=== PATIENT | male | born 1945 | race Caucasian/White ===

== ENCOUNTER 2018-12-01 17:25 | Observation (INO) | payer MEDICARE, OTHER ==
[2018-12-01] MEDS ORDERED: ALBUTEROL SULFATE/IPRATROPIUM 3 ML NEBU IH ONE (17:41)
[2018-12-01] MEDS ORDERED: METHYLPREDNISOLONE SOD SUCC/PF 125 MG/2 ML VIAL IV ONE (17:41)
[2018-12-01 17:53] LABS: Hematocrit 46.9 % (42.0-52.0); Hemoglobin 15.4 gm/dL (13.5-18.0); Mean Cell Volume 93.8 fl (78-100); Mean Corpuscular Hemoglobin 30.8 pg (27-31); Mean Corpuscular Hgb Conc 32.8 g/dl (32-36); Neutrophil # 7.1 K/mm3 (1.3-6.0); Neutrophil % 80.8 % (42-75.0); Platelet Count 305 K/mm3 (150-450); Red Cell Distribution Width 11.8 % (11.5-14.0); White Blood Count 8.8 K/mm3 (4.0-10.5)
[2018-12-01 18:05] LABS: Albumin * 3.6 gm/dl (3.4-5.0); Anion Gap 10.8 mmol/L (6.8-13.8); BUN/Creatinine Ratio 18.8 (9.0-21.6); Bilirubin, Total 0.5 mg/dL (0.0-1.1); Ca. Corrected For Albumin 10.3 mg/dL (8.4-10.2); Calcium * 10.3 mg/dL (7.9-10.9); Potassium 4.8 mmol/L (3.4-4.6); Total Protein 8.2 gm/dL (6.2-8.2)
--- NOTE | 2018-12-01 18:48 | ERNOTE ---
Dyspnea - Date Date of Service: 12/01/18 - General Presenting Symptoms: shortness of breath, difficulty of breathing, wheezing Time Seen by Provider: 12/01/18 17:37 Source: patient, family Exam Limitations: no limitations - Immun/Allergies/Home Medications Immunizations: IMMUNIZATION HX Immunizations Up to Date Yes History of Influenza Vaccine Yes Hx Pneumococcal Vaccination Yes Allergies/Adverse Reactions: Allergies morphine Adverse Reaction (Intermediate, Verified 12/01/18 17:34) bad headache Iodinated Contrast- Oral and IV Dye Adverse Reaction (Verified 12/01/18 17:34) rash Home Medications: HOME MEDICATIONS Naproxen Sodium [Aleve] 220 mg PO BID PRN 05/19/15 [Last Taken Unknown] acetaminophen 325 mg capsule 325 mg PO Q4H PRN 11/11/18 [Last Taken Unknown] albuterol sulfate HFA 90 mcg/actuation aerosol inhaler 2 puff IH Q6H PRN 11/11/18 [Last Taken Unknown] budesonide-formoterol HFA 80 mcg-4.5 mcg/actuation aerosol inhaler 2 puff IH BID 11/11/18 [Last Taken Unknown] losartan 100 mg tablet 50 mg PO DAILY tab 11/11/18 [Last Taken Unknown] buspirone 5 mg tablet 5 mg PO BID tab 11/20/18 [Last Taken Unknown] tramadol 50 mg tablet 50 mg PO Q6H PRN #30 tab 11/20/18 [Last Taken Unknown] - History of Present Illness Narrative: patient with known hx of end stage copd present with increased sob over last several days, is on oxygen continuously Severity: moderate Treatment 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: 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 Initiating event: Reports: upper resp illness Frequency of episodes: Reports: frequent episodes Modifying Factors - (Improves): Reports: nothing Modifying Factors (Worsens): Reports: activity Associated Symptoms-Dyspnea: Reports: wheezing Review of Systems - Review of Systems Constitutional: Present: See HPI, weakness, fatigue, malaise EYE: Present: no symptoms reported ENT: Present: no symptoms reported Respiratory: Present: See HPI, shortness of breath, cough, wheezing Cardiology: Present: no symptoms reported Gastrointestinal/Abdominal: Present: no symptoms reported Genitourinary: Present: no symptoms reported Musculoskeletal: Present: no symptoms reported Skin: Present: no symptoms reported Neurological: Present: no symptoms reported Endocrine: Present: no symptoms reported Hematologic/Lymphatic: Present: no symptoms reported Psych: Present: no symptoms reported Medical History (Last Reviewed 12/01/18 @ 17:35 by Hoda Aden RN) BPH (benign prostatic hyperplasia) Onset Date: Unknown COPD (chronic obstructive pulmonary disease) Onset Date: Unknown Carotid stenosis Onset Date: Unknown H/O gastroesophageal reflux (GERD) Onset Date: Unknown HTN (hypertension) Onset Date: Unknown Hyperlipidemia Onset Date: Unknown Past heart attack Onset Date: Unknown Surgical History: Surgical History (Last Reviewed 12/01/18 @ 17:35 by Hoda Aden RN) H/O flexible sigmoidoscopy Onset Date: Unknown Done at the [facility]- refuses colonoscopy History of cystoscopy Onset Date: Unknown History of esophagogastroduodenoscopy (EGD) Onset Date: ~2005 done at the [facility]-polyps urethroplasty Onset Date: Unknown Family History: Family History (Last Reviewed 12/01/18 @ 17:35 by Hoda Aden RN) Mother Cancer Dementia Myocardial infarction Father , age 52-CVA No problems noted. Brother No problems noted. Social History: Preferred Language Kyrgyz Smoking Status Former smoker Abuse History No History of abuse Psych History Hx of Anxiety Alcohol Use none Drug Use none (Last Updated 11/20/18 @ 15:33 by Ana Cristina Raman MD) No Social History Section defined Physical Exam - Physical Exam General Appearance: Present: moderate distress, anxious Head Exam: Present: normal inspection, no evidence of injury Eye Exam: Normal inspection: bilateral, PERRL: bilateral, EOMI: bilateral Ears, Nose, Throat: Present: normal ENT inspection, normal pharynx Neck: Present: normal inspection, nontender Respiratory: Present: respiratory distress, accessory muscle use, decreased breath sounds, expiration (prolonged), wheezing Cardiovascular/Chest: Present: regular rate, rhythm, no murmur, normal peripheral pulses Gastrointestinal/Abdominal: Present: normal bowel sounds, nontender, nondistended, soft, no organomegaly Back Exam: Present: normal inspection, normal range of motion, no CVA tenderness, no vertebral tenderness Extremity Exam: Present: normal inspection, non-tender Neurological Exam: Present: alert, oriented, normal mood/affect, no motor/sensory deficits Skin Exam: Present: normal color, warm/dry Lymphatic Exam: Present: no adenopathy Progress - Date and Time Seen: Date and Time: 12/01/18 19:13 patient unchanged, case discussed with dr szymanski to admmit to observation - Results and Orders Patient's Lab Results:: I have reviewed the patient's lab results. - Vital Signs Patient's Vital Signs:: I have reviewed the patient's vital signs. Vital Signs: Vital Signs 12/01/18 17:31 12/01/18 17:35 12/01/18 18:06 Temperature 36.6 C Pulse Rate 93 96 80 Respiratory Rate 18 22 H Blood Pressure 203/110 H O2 Sat by Pulse Oximetry 94 97 12/01/18 18:16 12/01/18 18:33 Temperature Pulse Rate 92 92 Respiratory Rate 20 20 Blood Pressure 177/106 H O2 Sat by Pulse Oximetry 92 L - EKG EKG: NSR - X-Ray X-Ray #1 X-Ray: chest Interpretation: Interp. by me - copd - Progress/Reassessment Chief Complaint: Dyspnea Progress:: Unchanged - Transfer of Care Expected Disposition: Admit Plan - Plan Plan: to admit to observation Departure Clinical Impression: COPD (chronic obstructive pulmonary disease) - Departure Disposition: Still a patient Condition: Poor Referrals: Ana Cristina Raman MD [Primary Care Provider] -
[2018-12-01] MEDS: METHYLPREDNISOLONE SOD SUCC/PF 40 MG/ML VIAL IV SCH (22:21)
[2018-12-01] MEDS: ACETAMINOPHEN 325 MG TABLET PO PRN (23:33)
[2018-12-02] MEDS: METHYLPREDNISOLONE SOD SUCC/PF 40 MG/ML VIAL IV SCH ×4 (02:32→19:07)
[2018-12-02] MEDS ORDERED: ACETAMINOPHEN 325 MG TABLET PO PRN (07:52)
--- NOTE | 2018-12-02 07:54 | HP ---
Chief Complaint - Chief Complaint Date of Service: 12/02/18 Time of Service: 07:30 Chief Complaint: Shortness of breath History of Present Illness: Josh is a 73 yo male with COPD and chronic respiratory failure using oxygen at 1.5lpm at times after activity. He reports to me that he does not use oxygen continuous, only after being active and getting short of breath. He reports over the last week having progressive shortness of breath and anxiety. He reports his wiener-basset dog gives him the most stress relief. He has not been getting out to [place] or [employer] in the past like he has due to the stress. He denies fever or increased sputum production. In the ER he was found to be 84% on room air and required 2lpm of continuous oxygen to keep his sats >90%. Medical History (Last Reviewed 12/01/18 @ 22:54 by Jw Almaguer RN) COPD (chronic obstructive pulmonary disease) Onset Date: Unknown BPH (benign prostatic hyperplasia) Onset Date: Unknown Carotid stenosis Onset Date: Unknown H/O gastroesophageal reflux (GERD) Onset Date: Unknown HTN (hypertension) Onset Date: Unknown Hyperlipidemia Onset Date: Unknown Past heart attack Onset Date: Unknown Surgical History: Surgical History (Last Reviewed 12/01/18 @ 22:54 by Jw Almaguer RN) H/O flexible sigmoidoscopy Onset Date: Unknown Done at the OR- refuses colonoscopy History of cystoscopy Onset Date: Unknown History of esophagogastroduodenoscopy (EGD) Onset Date: ~2005 done at the OR-polyps urethroplasty Onset Date: Unknown Family History: Family History (Last Reviewed 12/01/18 @ 22:54 by Jw Almaguer RN) Mother Cancer Dementia Myocardial infarction Father , age 52-CVA No problems noted. Brother No problems noted. Social History: Patient Lives/Resources Home Utilized Occupation [employer] Preferred Language Bhutanese Do you have any congregation or Yes: [employer] cultural preference? Smoking Status Former smoker Have you smoked in the past 12 No months Do you dip or chew tobacco No Abuse History No History of abuse Psych History Hx of Anxiety Alcohol Use none Drug Use none (Last Updated 11/20/18 @ 15:33 by Ana Cristina Raman MD) No Social History Section defined Review Of Systems (GEN) - Review of Systems Generalized/Overall Review: Present: Weakness. Absent: Chills, Fever EENTM: Present: No Symptoms Reported Respiratory: Present: Cough, Shortness of Breath Cardiac: Present: Palpitations. Absent: Chest Pain, Edema Abdominal: Present: No Symptoms Reported Genitourinary: Present: No Symptoms Reported Musculoskeletal: Present: No Symptoms Reported Neurological: Present: Anxiety Skin: Present: No Symptoms Reported Endocrine: Present: No Symptoms Reported Immunizations: IMMUNIZATION HX Immunizations Up to Date Yes History of Influenza Vaccine Yes Hx Pneumococcal Vaccination Yes Allergies/Adverse Reactions: Allergies Allergy/AdvReac Type Severity Reaction Status Date / Time morphine AdvReac Intermediate bad Verified 12/01/18 17:34 headache Iodinated Contrast- Oral and AdvReac rash Verified 12/01/18 17:34 IV Dye Home Medications: HOME MEDICATIONS Naproxen Sodium [Aleve] 220 mg PO BID PRN 05/19/15 [Last Taken Unknown] acetaminophen 325 mg capsule 325 mg PO Q4H PRN 11/11/18 [Last Taken Unknown] albuterol sulfate HFA 90 mcg/actuation aerosol inhaler 2 puff IH Q6H PRN 11/11/18 [Last Taken Unknown] budesonide-formoterol HFA 80 mcg-4.5 mcg/actuation aerosol inhaler 2 puff IH BID 11/11/18 [Last Taken Unknown] losartan 100 mg tablet 50 mg PO DAILY tab 11/11/18 [Last Taken Unknown] buspirone 5 mg tablet 5 mg PO BID tab 11/20/18 [Last Taken Unknown] Exam - Exam Vital Signs: Vital Signs - Last Taken Temp 36.5 C 12/02/18 06:24 Pulse 86 12/02/18 06:24 Resp 20 12/02/18 06:24 BP 157/93 H 12/02/18 06:24 Pulse Ox 98 12/02/18 06:24 Constitutional: Present: Alert, Oriented x3, Cooperative, Mild distress - Tachypnea Eye Exam: bilateral eye: normal inspection Respiratory: Present: wheezing, expiration (prolonged), other - barrel chested Cardiovascular/Chest: Present: regular rate, rhythm, no murmur Peripheral Pulses: radial (R): 2+, radial (L): 2+ Abdomen: Present: Normal bowel sounds, soft, nontender, nondistended, no hepatospenomegaly Extremity: Present: normal inspection Skin Exam: Present: normal color, warm/dry, no cyanosis Lymphatic: Present: no adenopathy Neurologic: Present: no motor/sensory deficits, alert, other - anxious Diagnostic Studies: Abnormal Lab Results 12/01/18 12/01/18 12/01/18 Range/Units 17:42 17:45 17:45 Neutrophils % 80.8 H (42-75.0) % Lymphocytes % 9.4 L (20-51) % Neutrophils # 7.1 H (1.3-6.0) K/mm3 Lymphocytes # 0.82 L (1.5-3.5) k/mm3 pO2 58.3 L (83.0-108.0) mmHg HCO3 30.2 H (21.0-28.0) mmol/L Total CO2 31.6 H (19.0-24.0) mmol/L Base Excess 5.8 H (-2.0-3.0) mmol/L ABG pH 7.47 H (7.35-7.45) ABG O2 Sat (Measured) 91.7 L (94.0-98.0) % Potassium 4.8 H D (3.4-4.6) mmol/L Calcium Adj for Albumin 10.3 H (8.4-10.2) mg/dL Alkaline Phosphatase 187 H (50-170) U/L Laboratory Results WBC 8.8 K/mm3 (4.0-10.5) 12/01/18 17:45 RBC 5.00 M/mm3 (4.7-6.0) 12/01/18 17:45 Hgb 15.4 gm/dL (13.5-18.0) 12/01/18 17:45 Hct 46.9 % (42.0-52.0) 12/01/18 17:45 MCV 93.8 fl (78-100) 12/01/18 17:45 MCH 30.8 pg (27-31) 12/01/18 17:45 MCHC 32.8 g/dl (32-36) 12/01/18 17:45 RDW 11.8 % (11.5-14.0) 12/01/18 17:45 Plt Count 305 K/mm3 (150-450) 12/01/18 17:45 MPV 11.0 fl (8-11.3) 12/01/18 17:45 Immature Gran % (Auto) 0.30 % (0.001-0.429) 12/01/18 17:45 Immature Gran # (Auto) 0.03 K/mm3 (0.000-0.0310) 12/01/18 17:45 Neutrophils % 80.8 % (42-75.0) H 12/01/18 17:45 Lymphocytes % 9.4 % (20-51) L 12/01/18 17:45 Monocytes % 8.0 % (0.0-9) 12/01/18 17:45 Eosinophils % 0.8 % (0.0-3.0) 12/01/18 17:45 Basophils % 0.7 % (0.0-1.0) 12/01/18 17:45 Nucleated RBC % 0.0 k/mm3 (0-1) 12/01/18 17:45 Neutrophils # 7.1 K/mm3 (1.3-6.0) H 12/01/18 17:45 Lymphocytes # 0.82 k/mm3 (1.5-3.5) L 12/01/18 17:45 Monocytes # 0.7 k/mm3 (0.0-1.0) 12/01/18 17:45 Eosinophils # 0.1 k/mm3 (0.0-0.7) 12/01/18 17:45 Absolute Basophils 0.1 k/mm3 (0.0-0.1) 12/01/18 17:45 pCO2 42.9 mmHg (35.0-48.0) 12/01/18 17:42 pO2 58.3 mmHg (83.0-108.0) L 12/01/18 17:42 HCO3 30.2 mmol/L (21.0-28.0) H 12/01/18 17:42 Total CO2 31.6 mmol/L (19.0-24.0) H 12/01/18 17:42 Base Excess 5.8 mmol/L (-2.0-3.0) H 12/01/18 17:42 ABG pH 7.47 (7.35-7.45) H 12/01/18 17:42 ABG O2 Sat (Measured) 91.7 % (94.0-98.0) L 12/01/18 17:42 Sodium 137 mmol/L (132-142) 12/01/18 17:45 Plasma Sodium 137 mmol/L (130-142) 12/01/18 17:45 Potassium 4.8 mmol/L (3.4-4.6) H D 12/01/18 17:45 Chloride 99 mmol/L (97-106) 12/01/18 17:45 Carbon Dioxide 32.0 mmol/L (24-32.6) 12/01/18 17:45 Anion Gap 10.8 mmol/L (6.8-13.8) 12/01/18 17:45 BUN 22 mg/dL (6-23) 12/01/18 17:45 Creatinine 1.17 mg/dL (0.4-1.4) 12/01/18 17:45 Est GFR (Non-Af Amer) 65 mL/min (60-130) 12/01/18 17:45 BUN/Creatinine Ratio 18.8 (9.0-21.6) 12/01/18 17:45 Random Glucose 109 mg/dL (70-110) 12/01/18 17:45 Calcium 10.3 mg/dL (7.9-10.9) 12/01/18 17:45 Calcium Adj for Albumin 10.3 mg/dL (8.4-10.2) H 12/01/18 17:45 Total Bilirubin 0.5 mg/dL (0.0-1.1) 12/01/18 17:45 AST 31 U/L (0-48) 12/01/18 17:45 ALT 45 U/L (19-67) 12/01/18 17:45 Alkaline Phosphatase 187 U/L (50-170) H 12/01/18 17:45 Total Protein 8.2 gm/dL (6.2-8.2) 12/01/18 17:45 Albumin 3.6 gm/dl (3.4-5.0) 12/01/18 17:45 Assessment/Plan - Narrative Narrative: Jonathan is a 73 yo male with significant respiratory distress secondary to COPD exacerbation and anxiety. Will start sertraline for anxiety as well as clonazepam prn. Will treat COPD with azithromycin, steroids, and albuterol. Will wean oxygen to his baseline. I would consider him to be acute on chronic respiratory failure as he does not use oxygen continuously at home but is currently having to constantly use it for hypoxia and significant dyspnea. - Assessment/Plan (1) Anxiety Problem: Acute (2) COPD exacerbation Problem: Acute
[2018-12-02] MEDS: FLUTICASONE/SALMETEROL 14 PUFF DISK.W.DEV IH SCH ×2 (08:55→20:28)
[2018-12-02] MEDS: LOSARTAN POTASSIUM 50 MG TABLET PO SCH (08:56)
[2018-12-02] MEDS: AZITHROMYCIN 250 MG TABLET PO SCH (08:56)
[2018-12-02] MEDS: SERTRALINE HCL 50 MG TABLET PO SCH (08:56)
[2018-12-02] MEDS: busPIRone HCL 5 MG TABLET PO SCH ×2 (08:56→20:29)
[2018-12-02] MEDS: ALBUTEROL SULFATE 2.5 MG/0.5 ML VIAL.NEB IH PRN (11:15)
[2018-12-02] MEDS ORDERED: clonazePAM 1 MG TABLET PO PRN (12:21)
[2018-12-02] MEDS: ACETAMINOPHEN 325 MG TABLET PO PRN (23:26)
[2018-12-03] MEDS: METHYLPREDNISOLONE SOD SUCC/PF 40 MG/ML VIAL IV SCH ×3 (01:34→13:14)
[2018-12-03] MEDS: FLUTICASONE/SALMETEROL 14 PUFF DISK.W.DEV IH SCH (08:13)
[2018-12-03] MEDS: LOSARTAN POTASSIUM 50 MG TABLET PO SCH (08:14)
[2018-12-03] MEDS: SERTRALINE HCL 50 MG TABLET PO SCH (08:14)
[2018-12-03] MEDS: busPIRone HCL 5 MG TABLET PO SCH (08:14)
[2018-12-03] MEDS: AZITHROMYCIN 250 MG TABLET PO SCH (08:14)
--- NOTE | 2018-12-03 12:52 | DS ---
(1) Anxiety Problem: Chronic (2) COPD exacerbation Problem: Resolved (3) COPD (chronic obstructive pulmonary disease) Problem: Chronic Qualifiers: COPD type: unspecified COPD Qualified Code(s): J44.9 - Chronic obstructive pulmonary disease, unspecified (4) Hypertension Problem: Chronic Qualifiers: Hypertension type: essential hypertension Qualified Code(s): I10 - Essential (primary) hypertension Description of Stay: 73-year-old male admitted for COPD exacerbation, chronic COPD, and anxiety was evaluated at bedside and was found to be afebrile in no acute distress. Patient was treated with IV steroids, antibiotics, and breathing treatments as well as oxygen therapy, and has shown significant improvement in his respiratory function and oxygenation. Patient's oxygen saturation has returned to baseline and he reports less labored breathing. Given these f indings decision to discharge patient home with additional days of oral antibiotics, oral steroids, as well as a nebulizer for breathing treatments with albuterol was made. Patient will also be discharged with services from [facility] where he will be provided with nursing services for medication education and management and assistance with breathing treatments as well as a bath aide and assistance with activities of daily living. Jonathan Be is homebound due to increasing shortness of breath and terminal COPD. The need for home health care skilled services is directly related to the time spent [id number] with the person. Procedures Performed: none Results and Findings: Lab Pending Results 12/01/18 17:42: pCO2 42.9, pO2 58.3 L, HCO3 30.2 H, Total CO2 31.6 H, Base Excess 5.8 H, ABG pH 7.47 H, ABG O2 Sat (Measured) 91.7 L 12/01/18 17:45: WBC 8.8, RBC 5.00, Hgb 15.4, Hct 46.9, MCV 93.8, MCH 30.8, MCHC 32.8, RDW 11.8, Plt Count 305, MPV 11.0, Immature Gran % (Auto) 0.30, Immature Gran # (Auto) 0.03, Neutrophils % 80.8 H, Lymphocytes % 9.4 L, Monocytes % 8.0, Eosinophils % 0.8, Basophils % 0.7, Nucleated RBC % 0.0, Neutrophils # 7.1 H, Lymphocytes # 0.82 L, Monocytes # 0.7, Eosinophils # 0.1, Absolute Basophils 0.1 12/01/18 17:45: Sodium 137, Plasma Sodium 137, Potassium 4.8 H D, Chloride 99, Carbon Dioxide 32.0, Anion Gap 10.8, BUN 22, Creatinine 1.17, Est GFR (Non-Af Amer) 65, BUN/Creatinine Ratio 18.8, Random Glucose 109, Calcium 10.3, Calcium Adj for Albumin 10.3 H, Total Bilirubin 0.5, AST 31, ALT 45, Alkaline Phosphatase 187 H, Total Protein 8.2, Albumin 3.6 Discharge Location: Home Disposition: Home Health Service Home Health Agency: [facility] Condition: Fair Face to Face Encounter completed per [facility] Guidelines: Yes Discharge Activity: Activity as tolerated Discharge Diet: General/regular food Referrals: Ana Cristina Raman MD [Primary Care Provider] - Additional Patient Instructions (free text): -Please make TCM appointment unless long-term discharge. Thank you! Lilo @ [phone]. [facility].Nursing and bath aide. Please call report and fax orders upon discharge. Phone number is [phone]. Prescriptions (Any new or edited meds): Albuterol Sulfate/Ipratropium [Duoneb 2.5-0.5MG/3ML Soln] 3 ml IH QID 30 Days #120 nebu Azithromycin [Zithromax] 250 mg PO DAILY 3 Days #3 tablet Prednisone 40 mg PO QDIPM 5 Days #5 tablet Sertraline HCl 25 mg PO QDIPM #30 tablet Complete Home Medications List: Complete Home Medication List: Naproxen Sodium [Aleve] 220 mg PO BID PRN 05/19/15 acetaminophen 325 mg capsule 325 mg PO Q4H PRN 11/11/18 albuterol sulfate HFA 90 mcg/actuation aerosol inhaler 2 puff IH Q6H PRN 11/11/18 budesonide-formoterol HFA 80 mcg-4.5 mcg/actuation aerosol inhaler 2 puff IH BID 11/11/18 buspirone 5 mg tablet 5 mg PO BID tab 11/20/18 Albuterol Sulfate/Ipratropium [Duoneb 2.5-0.5MG/3ML Soln] 3 ml IH QID 30 Days #120 nebu 12/03/18 Azithromycin [Zithromax] 250 mg PO DAILY 3 Days #3 tablet 12/03/18 Prednisone 40 mg PO QDIPM 5 Days #5 tablet 12/03/18 Sertraline HCl 25 mg PO QDIPM #30 tablet 12/03/18 clonazePAM [Klonopin] 1 mg PO BID PRN tab 12/03/18
[2018-12-03] MEDS: ALBUTEROL SULFATE 2.5 MG/0.5 ML VIAL.NEB IH PRN (13:04)
[2018-12-03 14:43] VITALS: BP 146/89
== END 2018-12-03 15:00 | disposition home health service (06) ==
LOC: ER 17:25 → MS 17:25
PROVIDERS: ADMIT Family Medicine; ATTEND Family Medicine
DX: R06.00 Dyspnea, unspecified
CPT/HCPCS: 36415; 36600; 71020; 71046; 80053; 82803; 85025; 90686; 93005; 94640; 94664; 94760; 96365; 96366; 96367; 96375; 99285; G0008; G0378

== ENCOUNTER 2020-09-20 07:08 | Inpatient (IN) ==
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
[2020-09-20 07:53] LABS: Hematocrit 44.5 % (42.0-52.0); Hemoglobin 14.5 gm/dL (13.5-18.0); Mean Cell Volume 97.6 fl (78-100); Mean Corpuscular Hemoglobin 31.8 pg (27-31); Mean Corpuscular Hgb Conc 32.6 g/dl (32-36); Mean Platelet Volume 10.8 fl (8-11.3); Platelet Count 217 K/mm3 (150-450); Red Blood Count 4.56 M/mm3 (4.7-6.0); Red Cell Distribution Width 11.8 % (11.5-14.0); White Blood Count 22.7 K/mm3 (4.0-10.5)
[2020-09-20 07:55] LABS: Total Cells Counted 100
[2020-09-20 08:07] LABS: Lymphocyte 2 % (20-51); Monocyte 5 % (0-9); Neutrophil 93 % (42-75); Neutrophil # 21.1 K/mm3 (1.3-6.0); Platelet Estimate Normal (NORMAL); RBC Morphology Normal (NORMAL)
[2020-09-20 08:10] LABS: Albumin * 4.2 gm/dl (3.4-5.0); Anion Gap 7.2 mmol/L (6.8-13.8); BUN/Creatinine Ratio 16.5 (9.0-21.6); Bilirubin, Total 0.7 mg/dL (0.0-1.1); Calcium * 10.5 mg/dL (7.9-10.9); Carbon Dioxide 36.3 mmol/L (24-32.6); Potassium 5.5 mmol/L (3.4-4.6); Total Protein 7.8 gm/dL (6.2-8.2)
[2020-09-20 08:11] LABS: Troponin I 0.024 ng/mL (0.00-0.10)
[2020-09-20 09:45] LABS: Urine Bilirubin Negative (NEGATIVE); Urine Ketone Negative (NEGATIVE); Urine Nitrite Negative (NEGATIVE); Urine Protein Negative (NEGATIVE); Urine Urobilinogen Normal (NORMAL); Urine pH 6.5 pH (5.0-7.0)
[2020-09-20 09:54] LABS: Urine Appearance Slightly Cloudy (CLEAR); Urine Bacteria None Seen; Urine Blood 5 /ul (NEGATIVE); Urine Color Yellow; Urine RBC 0-5 /hpf (0-5); Urine WBC 0-5 /hpf (0-5)
[2020-09-20] MEDS ORDERED: HYDROmorphone HCL 1 MG/ML DISP.SYRIN IV ONE (10:00)
--- NOTE | 2020-09-20 12:11 | CONS ---
HPI - General Date of Service: 09/20/20 Narrative: Mr. Bonds is a 75-year-old gentleman who was admitted to Dr. Magana's service for ground-level fall. At this time when I walked into the room he was sleeping and he was hard to awaken. Once I got him to open his eyes he would not respond to questions whatsoever. According to his ER record he had fallen at home prior to arrival. He complained of right hip and low back pain. He had fentanyl given to him. He had given him a history of longstanding COPD which she is on oxygen at home for. - History of Present Illness Allergies/Adverse Reactions: Allergies morphine Adverse Reaction (Intermediate, Verified 12/31/19 14:22) bad headache Iodinated Contrast Media [Iodinated Contrast- Oral and IV Dye] Adverse Reaction (Mild, Verified 12/31/19 14:22) rash Home Medications: Home Medications Medication Instructions Recorded Last Taken digital BP cuff 0 .ROUTE .MEDSUPPLY #1 ea 07/12/20 Unknown acetaminophen 325 mg capsule 325 mg PO Q4H PRN #100 cap 08/25/20 Unknown albuterol sulfate 90 mcg/actuation 2 puff IH Q6H PRN #18 g 08/25/20 Unknown aerosol inhaler aspirin 81 mg tablet,delayed 81 mg PO DAILY #100 tab 08/25/20 Unknown release budesonide-formoterol HFA 80 2 puff IH BID #10.2 g 08/25/20 Unknown mcg-4.5 mcg/actuation aerosol inhaler cetirizine 10 mg tablet 5 mg PO DAILY PRN #100 tab 08/25/20 Unknown cholecalciferol (vitamin D3) 25 25 mcg PO DAILY #100 cap 08/25/20 Unknown mcg (1,000 unit) capsule diphenhydramine HCl 25 mg tablet 25 mg PO Q8H PRN #30 tab 08/25/20 Unknown docusate sodium 100 mg capsule 100 mg PO DAILY #100 cap 08/25/20 Unknown finasteride 5 mg tablet 5 mg PO DAILY #30 tab 08/25/20 Unknown ibuprofen 800 mg tablet 800 mg PO TID #90 tab 08/25/20 Unknown losartan 50 mg tablet 50 mg PO DAILY #90 tab 08/25/20 Unknown metolazone 5 mg tablet 5 mg PO DAILY #30 tab 08/25/20 Unknown polyethylene glycol 3350 17 17 g PO DAILY #510 g 08/25/20 Unknown gram/dose oral powder potassium chloride 20 mEq 20 meq PO BID #60 tab 08/25/20 Unknown tablet,extended release tamsulosin 0.4 mg capsule 0.4 mg PO DAILY #90 cap 08/25/20 Unknown tramadol 50 mg tablet 50 mg PO Q6H PRN #120 tab 08/25/20 Unknown pantoprazole 40 mg tablet,delayed 40 mg PO DAILY #30 tab 08/31/20 Unknown release sucralfate 1 gram tablet 1 g PO ACHS #60 tab 08/31/20 Unknown Nebulizer Replacement Kit 0 .ROUTE .MEDSUPPLY #1 ea 09/09/20 Unknown Albuterol Sulfate/Ipratropium 3 ml INHALATION QID PRN 09/20/20 Unknown [Duoneb 2.5-0.5MG/3ML Soln] Carboxymethylcellulose Sodium 1 ea OPHTHALMIC (EYE) QID 09/20/20 Unknown [Thera Tears] Fluticasone Propionate [24 Hour 9.9 ml NS DAILY 09/20/20 Unknown Allergy] buspirone 10 mg tablet 10 mg PO TID 09/20/20 Unknown Procedures Application of splint (06/17/12) Closure of skin and subcutaneous tissue of other sites (06/11/12) Physical Examination - Exam Narrative: Patient is lying in bed at this time he appears comfortable. He is a frail- appearing gentleman. Is hard to arouse and will not respond to questions. Logrolling his right hip does respond like it is causing some discomfort. Vitals reviewed shows he is tachycardic and hypertensive. X-rays reviewed show a displaced subcapital hip fracture of his right hip. Vital Signs: Vital Signs - Last Taken Temp 36.4 C 09/20/20 11:29 Pulse 117 H 09/20/20 11:29 Resp 18 09/20/20 11:29 BP 164/94 H 09/20/20 11:29 Pulse Ox 100 09/20/20 11:29 O2 Oxygen Delivery Method Non-Rebreather - Results and Findings: Lab/Microbiology results last 24 hrs: Abnormal/Pending Laboratory Last 24 HRS 09/20/20 09/20/20 09/20/20 09:31 07:45 07:45 WBC RBC MCH Neutrophils % (Manual) Lymphocytes % (Manual) Neutrophils # (Manual) Lymphocytes # (Manual) Monocytes # (Manual) Potassium Carbon Dioxide Est GFR (Non-Af Amer) Random Glucose Creatine Kinase 666 H B-Natriuretic Peptide 481 H Urine Blood 5 H 09/20/20 09/20/20 07:45 07:45 WBC 22.7 H RBC 4.56 L MCH 31.8 H Neutrophils % (Manual) 93 H Lymphocytes % (Manual) 2 L Neutrophils # (Manual) 21.1 H Lymphocytes # (Manual) 0.5 L Monocytes # (Manual) 1.1 H Potassium 5.5 H Carbon Dioxide 36.3 H Est GFR (Non-Af Amer) 56 L Random Glucose 119 H Creatine Kinase B-Natriuretic Peptide Urine Blood - Assessments/Findings (1) Subcapital fracture of right hip Diagnosis(s): Mr. Jay is a 75-year-old gentleman with advanced COPD. He has a displaced subcapital hip fracture from a ground-level fall. Pending medical evaluation if he is healthy enough to proceed with surgery would recommend hemiarthroplasty. If he is felt to be stable for surgery we will have to obtain consents from power of insurance defense attorney as Mr. Bonds is not responding to any questioning at this point time. Problem: Acute
[2020-09-20] MEDS ORDERED: ENOXAPARIN SODIUM 40 MG/0.4 ML SYRG SC SCH (13:00)
[2020-09-20] MEDS ORDERED: FUROSEMIDE 10 MG/ML VIAL IV ONE (13:06)
[2020-09-20] MEDS ORDERED: cloNIDine 0.2 MG PATCH.TDWK TD SCH (13:30)
[2020-09-20] MEDS ORDERED: LORazepam 2 MG/ML DISP.SYRIN IV ONE ×2 (13:38→18:32)
[2020-09-20] MEDS ORDERED: HALOPERIDOL LACTATE 5 MG/ML VIAL IM ONE (13:41)
[2020-09-20 14:00] LABS: Cocaine Ur Negative (NEGATIVE); Urine Barbiturate Negative (NEGATIVE); Urine Benzodiazepines Negative (NEGATIVE); Urine Opiates Negative (NEGATIVE); Urine PCP Negative (NEGATIVE); Urine THC Negative (NEGATIVE)
[2020-09-20] MEDS: ALBUTEROL SULFATE/IPRATROPIUM 3 ML NEBU IH PRN ×2 (15:18→18:25)
[2020-09-20] MEDS ORDERED: RINGER'S SOLUTION,LACTATED 1,000 ML IV ONE ×2 (15:31→17:03)
[2020-09-20] MEDS ORDERED: NORMAL SALINE 1,000 ML IV ONE (17:03)
[2020-09-20] MEDS ORDERED: PROPOFOL VIAL IV ONE (17:12)
[2020-09-20] MEDS ORDERED: SUCCINYLCHOLINE CHLORIDE 20 MG/ML VIAL ONE (17:12)
[2020-09-20] MEDS ORDERED: NOREPINEPHRINE BITARTRATE 4 MG in DEXTROSE 5 % IN WATER 496 ML IV PRN ×4 (17:25→17:51)
[2020-09-20] MEDS ORDERED: PROPOFOL 1,000 MG/100 ML PIGGYBACK IV PRN (17:25)
--- NOTE | 2020-09-20 17:36 | ANES ---
Anesthesia Procedure Note Procedure Note: ANESTHESIA PROCEDURE NOTE Date of procedure: 09/20/2020. Time of procedure: 1725. Performed by: Giacomo Sun CRNA [place] Installer: None . Preprocedure diagnosis: Respiratory distress. Need for mechanical ventilation Post procedure diagnosis: Same. Procedure: Endotracheal intubation Indications: Need for mechanical ventilation. Findings: Patient was given 50 mg of propofol and 100 mg of succinylcholine IV. Endotracheal intubation with 7.0 Singaporean endotracheal tube and MAC 3 blade. Endotracheal tube taped at 22 cm. End-tidal CO2 positive. Bilateral breath sounds equal. EBL: Minimal. Fluids: N/A. Specimen: N/A. Post procedure condition: The patient tolerated the procedure well. No complications were noted. Thank you for this consultation Giacomo Snu CRNA
--- NOTE | 2020-09-20 17:37 | HP ---
Chief Complaint - Chief Complaint Date of Service: 09/20/20 Time of Service: 12:30 Chief Complaint: Pain in right hip, obtunded mentation History of Present Illness: Patient is coming to the ER after falling [employer]. He states that he had used the restroom and on the way out lost his balance and fell hitting his right side. He complains about pain in his lower back and right hip. After receiving a total of 50 mcg of fentanyl by EMS he is fairly comfortable. He has a history of COPD, is on 2 to 3 L of oxygen at home. He denies any other pain or injury, denies any recent medical problems. When asked about his leg edema he states he has had that for a long time, was on medications by his PCP but they made him urinate so much that he decided to stop them After reaching the medical floor he became more obtunded and in partially woke up and became very combative but noncommunicative. I spoke with his nuclear operations specialist today and she said that he called him about 10 minutes after falling to report the fall and was lucid at that time. She went to see him and was unable to get them up because of severe pain in the right hip. He eventually he agreed to come to the hospital and EMS was summoned. On arrival in ER he could answer some questions appropriately but mental status deteriorated. He had a CT scan done in ER that was nonrevealing. His oxygen was low and so he was placed on nasal cannula O2 and then advanced to a mask. On my exam he has a disconjugate gaze and is responsive only to tactile and painful stimuli. He did receive some fentanyl in the emergency room and perhaps that has caused some of his subtended nature. He became combative once again this afternoon and I gave him 2 mg of lorazepam IV and 10 mg of haloperidol IM which quieted him. His respiratory drive appears to be good that he is not exchanging gases. Because he has emphysema I ordered blood gases which showed an elevated PCO2 in the 60s. He was placed on BiPAP and then an hour later the gases were repeated but unfortunately the PCO2 has risen to 91. Having failed BiPAP he will now be intubated since he is a full code and then we are working on transfer arrangements to the [facility] to ICU bed. Reexam of his abdomen shows it continued to be firm. I do not feel any distinct masses but I would not be surprised if he does not have an intra-abdominal pathology this causes anorexia, weight loss, malnutrition, hypoproteinemia and subsequent anasarca. His caregiver says that the anasarca started about 6 weeks ago. Fortunately he is Covid nondetected. Medical History (Last Reviewed 09/20/20 @ 12:27 by Hyun Zepeda RN) Chronic dermatitis (Chronic) Bilateral inguinal hernia (Chronic) COPD (chronic obstructive pulmonary disease) (Chronic) COPD (chronic obstructive pulmonary disease) Onset Date: Unknown BPH (benign prostatic hyperplasia) Onset Date: Unknown Carotid stenosis Onset Date: Unknown H/O gastroesophageal reflux (GERD) Onset Date: Unknown HTN (hypertension) Onset Date: Unknown Hyperlipidemia Onset Date: Unknown Past heart attack Onset Date: Unknown Surgical History: Surgical History (Last Reviewed 09/20/20 @ 12:27 by Hyun Zepeda RN) H/O flexible sigmoidoscopy Onset Date: Unknown Done at the [facility]- refuses colonoscopy History of cystoscopy Onset Date: Unknown History of esophagogastroduodenoscopy (EGD) Onset Date: ~2005 done at the [facility]-polyps urethroplasty Onset Date: Unknown Family History: Family History (Last Reviewed 09/20/20 @ 12:27 by Hyun Zepeda RN) Mother , age 90's Cancer thinks it was colon ca Dementia Myocardial infarction Father , age 52-CVA No problems noted. Brother , age 60's-prostate ca No problems noted. Social History: (Last Reviewed 09/20/20 @ 12:27 by Hyun Zepeda RN) Social History: Marital status: Single household members: none current occupational status: disabled Highest education level completed: GED or equivalent Service: Yes branch: [employer] status: retired Tobacco: Smoking Status: Former smoker Alcohol: alcohol intake: former Substance Use: substance use type: does not use Dietary Habits: caffeine: Yes Type: coffee Personal Safety: victim of physical abuse: No victim of emotional abuse: No Review Of Systems (GEN) - Review of Systems Generalized/Overall Review: Present: Weakness, Malaise EENTM: Present: No Symptoms Reported Respiratory: Present: Shortness of Breath Cardiac: Present: Edema Abdominal: Present: Nausea, Vomiting, Abdominal Pain Genitourinary: Present: No Symptoms Reported - [facility], months coming okay will thank you Musculoskeletal: Present: Joint Pain - Right hip due to subcapital impacted fracture Neurological: Present: Other - Obtunded mental status Skin: Present: No Symptoms Reported Endocrine: Present: No Symptoms Reported Immunizations: IMMUNIZATION HX Immunizations Up to Date Yes History of Influenza Vaccine Yes Hx Pneumococcal Vaccination No Allergies/Adverse Reactions: Allergies Allergy/AdvReac Type Severity Reaction Status Date / Time morphine AdvReac Intermediate bad Verified 12/31/19 14:22 headache Iodinated Contrast Media AdvReac Mild rash Verified 12/31/19 14:22 [Iodinated Contrast- Oral and IV Dye] Home Medications: HOME MEDICATIONS digital BP cuff 0 .ROUTE .MEDSUPPLY #1 ea 07/12/20 [Last Taken Unknown] acetaminophen 325 mg capsule 325 mg PO Q4H PRN #100 cap 08/25/20 [Last Taken Unknown] albuterol sulfate 90 mcg/actuation aerosol inhaler 2 puff IH Q6H PRN #18 g 08/25/20 [Last Taken Unknown] aspirin 81 mg tablet,delayed release 81 mg PO DAILY #100 tab 08/25/20 [Last Taken Unknown] budesonide-formoterol HFA 80 mcg-4.5 mcg/actuation aerosol inhaler 2 puff IH BID #10.2 g 08/25/20 [Last Taken Unknown] cetirizine 10 mg tablet 5 mg PO DAILY PRN #100 tab 08/25/20 [Last Taken Unknown] cholecalciferol (vitamin D3) 25 mcg (1,000 unit) capsule 25 mcg PO DAILY #100 cap 08/25/20 [Last Taken Unknown] diphenhydramine HCl 25 mg tablet 25 mg PO Q8H PRN #30 tab 08/25/20 [Last Taken Unknown] docusate sodium 100 mg capsule 100 mg PO DAILY #100 cap 08/25/20 [Last Taken Unknown] finasteride 5 mg tablet 5 mg PO DAILY #30 tab 08/25/20 [Last Taken Unknown] ibuprofen 800 mg tablet 800 mg PO TID #90 tab 08/25/20 [Last Taken Unknown] losartan 50 mg tablet 50 mg PO DAILY #90 tab 08/25/20 [Last Taken Unknown] metolazone 5 mg tablet 5 mg PO DAILY #30 tab 08/25/20 [Last Taken Unknown] polyethylene glycol 3350 17 gram/dose oral powder 17 g PO DAILY #510 g 08/25/20 [Last Taken Unknown] potassium chloride 20 mEq tablet,extended release 20 meq PO BID #60 tab 08/25/20 [Last Taken Unknown] tamsulosin 0.4 mg capsule 0.4 mg PO DAILY #90 cap 08/25/20 [Last Taken Unknown] tramadol 50 mg tablet 50 mg PO Q6H PRN #120 tab 08/25/20 [Last Taken Unknown] pantoprazole 40 mg tablet,delayed release 40 mg PO DAILY #30 tab 08/31/20 [Last Taken Unknown] sucralfate 1 gram tablet 1 g PO ACHS #60 tab 08/31/20 [Last Taken Unknown] Nebulizer Replacement Kit 0 .ROUTE .MEDSUPPLY #1 ea 09/09/20 [Last Taken Unknown] Albuterol Sulfate/Ipratropium [Duoneb 2.5-0.5MG/3ML Soln] 3 ml INHALATION QID PRN 09/20/20 [Last Taken Unknown] Carboxymethylcellulose Sodium [Thera Tears] 1 ea OPHTHALMIC (EYE) QID 09/20/20 [Last Taken Unknown] Fluticasone Propionate [24 Hour Allergy] 9.9 ml NS DAILY 09/20/20 [Last Taken Unknown] buspirone 10 mg tablet 10 mg PO TID 09/20/20 [Last Taken Unknown] Exam - Exam Vital Signs: Vital Signs - Last Taken Temp 36.4 C 09/20/20 14:27 Pulse 85 09/20/20 16:58 Resp 17 09/20/20 16:58 BP 71/47 L 09/20/20 17:02 Pulse Ox 100 09/20/20 16:58 Constitutional: Present: Obtunded, Elderly, Thin and frail ENT Exam: Present: normal ENT inspection Eye Exam: bilateral eye: other - Disconjugate gaze Neck: Present: non-tender, full range of motion, supple - Continue doing what ever he recommends pressure have not seen Back Exam: Present: normal inspection Breasts: Present: Nontender Respiratory: Present: rhonchi, wheezing, expiration (prolonged) Cardiovascular/Chest: Present: normal peripheral pulses, regular rate, rhythm, no chest tenderness, no edema, no gallop, no JVD, no murmur, no rub Peripheral Pulses: carotid (R): 2+, carotid (L): 2+, radial (R): 2+, radial (L): 2+ Abdomen: Present: Normal bowel sounds, no masses, firm /Rectal: Present: Exam deferred Extremity: Present: normal range of motion, non-tender, normal inspection, no pedal edema, no calf tenderness, normal capillary refill Skin Exam: Present: normal color, warm/dry Lymphatic: Present: no adenopathy 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35-7.45) ABG O2 Sat (Measured) (94.0-98.0) % Potassium 5.5 H (3.4-4.6) mmol/L Carbon Dioxide 36.3 H (24-32.6) mmol/L Est GFR (Non-Af Amer) 56 L (60-130) mL/min Random Glucose 119 H (70-110) mg/dL Creatine Kinase 666 H (0-259) U/L B-Natriuretic Peptide (5-350) pg/mL Urine Blood (NEGATIVE) /ul 09/20/20 09/20/20 09/20/20 Range/Units 07:45 09:31 14:50 WBC (4.0-10.5) K/mm3 RBC (4.7-6.0) M/mm3 MCH (27-31) pg Neutrophils % (Manual) (42-75) % Lymphocytes % (Manual) (20-51) % Neutrophils # (Manual) (1.3-6.0) K/mm3 Lymphocytes # (Manual) (1.5-3.5) k/mm3 Monocytes # (Manual) (0.0-1.0) k/mm3 pCO2 65.0 H (35.0-48.0) mmHg pO2 46.2 L (83.0-108.0) mmHg HCO3 (21.0-28.0) mmol/L Total CO2 28.9 H (19.0-24.0) mmol/L ABG pH 7.24 L (7.35-7.45) ABG O2 Sat (Measured) 73.3 L (94.0-98.0) % Potassium (3.4-4.6) mmol/L Carbon Dioxide (24-32.6) mmol/L Est GFR (Non-Af Amer) (60-130) mL/min Random Glucose (70-110) mg/dL Creatine Kinase (0-259) U/L B-Natriuretic Peptide 481 H (5-350) pg/mL Urine Blood 5 H (NEGATIVE) /ul 09/20/ Range/Units 16:22 WBC (4.0-10.5) K/mm3 RBC (4.7-6.0) M/mm3 MCH (27-31) pg Neutrophils % (Manual) (42-75) % Lymphocytes % (Manual) (20-51) % Neutrophils # (Manual) (1.3-6.0) K/mm3 Lymphocytes # (Manual) (1.5-3.5) k/mm3 Monocytes # (Manual) (0.0-1.0) k/mm3 pCO2 90.5 H* (35.0-48.0) mmHg pO2 (83.0-108.0) mmHg HCO3 33.9 H (21.0-28.0) mmol/L Total CO2 36.7 H (19.0-24.0) mmol/L ABG pH 7.19 L (7.35-7.45) ABG O2 Sat (Measured) (94.0-98.0) % Potassium (3.4-4.6) mmol/L Carbon Dioxide (24-32.6) mmol/L Est GFR (Non-Af Amer) (60-130) mL/min Random Glucose (70-110) mg/dL Creatine Kinase (0-259) U/L B-Natriuretic Peptide (5-350) pg/mL Urine Blood (NEGATIVE) /ul Laboratory Results WBC 22.7 K/mm3 (4.0-10.5) H 09/20/20 07:45 RBC 4.56 M/mm3 (4.7-6.0) L 09/20/20 07:45 Hgb 14.5 gm/dL (13.5-18.0) 09/20/20 07:45 Hct 44.5 % (42.0-52.0) 09/20/20 07:45 MCV 97.6 fl (78-100) 09/20/20 07:45 MCH 31.8 pg (27-31) H 09/20/20 07:45 MCHC 32.6 g/dl (32-36) 09/20/20 07:45 RDW 11.8 % (11.5-14.0) 09/20/20 07:45 Plt Count 217 K/mm3 (150-450) 09/20/20 07:45 MPV 10.8 fl (8-11.3) 09/20/20 07:45 Neutrophils % (Manual) 93 % (42-75) H 09/20/20 07:45 Lymphocytes % (Manual) 2 % (20-51) L 09/20/20 07:45 Monocytes % (Manual) 5 % (0-9) 09/20/20 07:45 Neutrophils # (Manual) 21.1 K/mm3 (1.3-6.0) H 09/20/20 07:45 Lymphocytes # (Manual) 0.5 k/mm3 (1.5-3.5) L 09/20/20 07:45 Monocytes # (Manual) 1.1 k/mm3 (0.0-1.0) H 09/20/20 07:45 Platelet Estimate Normal (NORMAL) 09/20/20 07:45 RBC Morphology Normal (NORMAL) 09/20/20 07:45 pCO2 90.5 mmHg (35.0-48.0) H* 09/20/20 16:22 pO2 90.8 mmHg (83.0-108.0) 09/20/20 16:22 HCO3 33.9 mmol/L (21.0-28.0) H 09/20/20 16:22 Total CO2 36.7 mmol/L (19.0-24.0) H 09/20/20 16:22 Base Excess 2.9 mmol/L (-2.0-3.0) 09/20/20 16:22 ABG pH 7.19 (7.35-7.45) L 09/20/20 16:22 ABG O2 Sat (Measured) 94.4 % (94.0-98.0) 09/20/20 16:22 Sodium 137 mmol/L (132-142) 09/20/20 07:45 Plasma Sodium 137 mmol/L (130-142) 09/20/20 07:45 Potassium 5.5 mmol/L (3.4-4.6) H 09/20/20 07:45 Chloride 99 mmol/L (97-106) 09/20/20 07:45 Carbon Dioxide 36.3 mmol/L (24-32.6) H 09/20/20 07:45 Anion Gap 7.2 mmol/L (6.8-13.8) 09/20/20 07:45 BUN 22 mg/dL (6-23) 09/20/20 07:45 Creatinine 1.33 mg/dL (0.4-1.4) 09/20/20 07:45 Est GFR (Non-Af Amer) 56 mL/min (60-130) L 09/20/20 07:45 BUN/Creatinine Ratio 16.5 (9.0-21.6) 09/20/20 07:45 Random Glucose 119 mg/dL (70-110) H 09/20/20 07:45 Lactic Acid, Venous 1.7 mmol/L (0.4-2.0) 09/20/20 07:45 Calcium 10.5 mg/dL (7.9-10.9) 09/20/20 07:45 Calcium Adj for Albumin 10.0 mg/dL (8.4-10.2) 09/20/20 07:45 Total Bilirubin 0.7 mg/dL (0.0-1.1) 09/20/20 07:45 AST 46 U/L (0-48) 09/20/20 07:45 ALT 48 U/L (19-67) 09/20/20 07:45 Alkaline Phosphatase 105 U/L (50-170) 09/20/20 07:45 Creatine Kinase 666 U/L (0-259) H 09/20/20 07:45 Troponin I 0.024 ng/mL (0.00-0.10) 09/20/20 07:45 B-Natriuretic Peptide 481 pg/mL (5-350) H 09/20/20 07:45 Total Protein 7.8 gm/dL (6.2-8.2) 09/20/20 07:45 Albumin 4.2 gm/dl (3.4-5.0) 09/20/20 07:45 Urine Color Yellow 09/20/20 09:31 Urine Appearance Slightly cloudy (CLEAR) 09/20/20 09:31 Urine pH 6.5 pH (5.0-7.0) 09/20/20 09:31 Ur Specific [employer] 1.020 SP.GR. (1.005-1.030) 09/20/20 09:31 Urine Protein Negative mg/dL (NEGATIVE) 09/20/20 09:31 Urine Glucose (UA) Negative mg/dL (NEGATIVE) 09/20/20 09:31 Urine Ketones Negative mg/dL (NEGATIVE) 09/20/20 09:31 Urine Blood 5 /ul (NEGATIVE) H 09/20/20 09:31 Urine Nitrate Negative (NEGATIVE) 09/20/20 09:31 Urine Bilirubin Negative mg/dl (NEGATIVE) 09/20/20 09:31 Urine Urobilinogen Normal EU/dl (NORMAL) 09/20/20 09: Ur Leukocyte Esterase Negative /ul (NEGATIVE) 09/20/20 09:31 Urine RBC 0-5 /hpf (0-5) 09/20/20 09:31 Urine WBC 0-5 /hpf (0-5) 09/20/20 09:31 Ur Epithelial Cells 0-5 /hpf (0-5) 09/20/20 09:31 Urine Bacteria None seen (NONE) 09/20/20 09:31 Urine Culture Comments No culture indicated 09/20/20 09: Urine Opiates Screen Negative (NEGATIVE) 09/20/20 13:25 Barbiturate Screen Negative (NEGATIVE) 09/20/20 13:25 Ur Phencyclidine Scrn Negative (NEGATIVE) 09/20/20 13:25 Urine Amphetamine Negative (NEGATIVE) 09/20/20 13:25 U Benzodiazepines Scrn Negative (NEGATIVE) 09/20/20 13:25 Urine Cocaine Screen Negative (NEGATIVE) 09/20/20 13:25 Urine Marijuana (THC) Negative (NEGATIVE) 09/20/20 13:25 SARS-CoV-2 (PCR) Not detected (NotDetected) 09/20/20 09:25 Assessment/Plan - Narrative Narrative: 1. Orthopedics consulted and want to do a hemiarthroplasty of the right hip but because of his medical status I have delayed that. 2. Because of CO2 retention and CO2 narcosis and having failed BiPAP I have elected to intubate him. Anesthesia has done so and is ventilating easily at this time. He will be placed on a vent. His blood pressure has been low and so I will start him on Levophed for pressure support. 3. I am working on transfer arrangements at this time. The [facility] does not have an ICU bed available. [facility] is looking at the chart at this time. 4. All p.o. meds are held. I did place him on a Catapres patch temporarily but his blood pressure dropped from 154 systolic to 70. - Assessment/Plan (1) Subcapital fracture of right hip Problem: Acute (2) CO2 retention Problem: Acute (3) CO2 narcosis Problem: Acute (4) Hypotension Problem: Acute Qualifiers: Hypotension type: hypotension due to hypovolemia Qualified Code(s): I95.89 - Other hypotension; E86.1 - Hypovolemia (5) Obtunded Problem: Acute (6) Anasarca Problem: Acute (7) Hypoproteinemia Problem: Acute (8) Malnutrition Problem: Acute Qualifiers: Malnutrition type: protein-calorie malnutrition Protein-calorie malnutrition severity: severe Qualified Code(s): E43 - Unspecified severe protein-calorie malnutrition (9) Early satiety Problem: Acute (10) COPD exacerbation Problem: Resolved
--- NOTE | 2020-09-20 17:48 | DS ---
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 He states that he had used the restroom and on the way out lost his balance and fell hitting his right side. He complains about pain in his lower back and right hip. After receiving a total of 50 mcg of fentanyl by EMS he is fairly comfortable. He has a history of COPD, is on 2 to 3 L of oxygen at home. He denies any other pain or injury, denies any recent medical problems. When asked about his leg edema he states he has had that for a long time, was on medications by his PCP but they made him urinate so much that he decided to stop them After reaching the medical floor he became more obtunded and in partially woke up and became very combative but noncommunicative. 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 She went to see him and was unable to get them up because of severe pain in the right hip. He eventually he agreed to come to the hospital and EMS was summoned. On arrival in ER he could answer some questions appropriately but mental status deteriorated. He had a CT scan done in ER that was nonrevealing. His oxygen was low and so he was placed on nasal cannula O2 and then advanced to a mask. On my exam he has a disconjugate gaze and is responsive only to tactile and painful stimuli. He did receive some fentanyl in the emergency room and perhaps that has caused some of his subtended nature. He became combative once again this afternoon and I gave him 2 mg of lorazepam IV and 10 mg of haloperidol IM which quieted him. His respiratory drive appears to be good that he is not exchanging gases. Because he has emphysema I ordered blood gases which showed an elevated PCO2 in the 60s. He was placed on BiPAP and then an hour later the gases were repeated but unfortunately the PCO2 has risen to 91. Having failed BiPAP he will now be intubated since he is a full code and then we are working on transfer arrangements to the [place] to ICU bed. Reexam of his abdomen shows it continued to be firm. I do not feel any distinct masses but I would not be surprised if he does not have an intra-abdominal pathology this causes anorexia, weight loss, malnutrition, hypoproteinemia and subsequent anasarca. His caregiver says that the anasarca started about 6 weeks ago. Fortunately he is Covid nondetected. Josh is now intubated and on a propofol drip. Were also starting Levophed for pressure support. I am awaiting a phone call from [facility] in [place] to see if they can accept him in transfer. [facility] has accepted him in transfer. I spoke with Dr. Dawson who has agreed to accept. He will be admitted to ICU. MDD Procedures Performed: see notes below - Intubation, ventilatory management, pressure support, - Results and Findings Results and Findings: Laboratory Results - last 24 hr 09/20/20 09/20/20 09/20/20 07:45 07:45 07:45 WBC 22.7 H RBC 4.56 L Hgb 14.5 Hct 44.5 MCV 97.6 MCH 31.8 H MCHC 32.6 RDW 11.8 Plt Count 217 MPV 10.8 Neutrophils % (Manual) 93 H Lymphocytes % (Manual) 2 L Monocytes % (Manual) 5 Neutrophils # (Manual) 21.1 H Lymphocytes # (Manual) 0.5 L Monocytes # (Manual) 1.1 H Platelet Estimate Normal RBC Morphology Normal pCO2 pO2 HCO3 Total CO2 Base Excess ABG pH ABG O2 Sat (Measured) Sodium 137 Plasma Sodium 137 Potassium 5.5 H Chloride 99 Carbon Dioxide 36.3 H Anion Gap 7.2 BUN 22 Creatinine 1.33 Est GFR (Non-Af Amer) 56 L BUN/Creatinine Ratio 16.5 Random Glucose 119 H Lactic Acid, Venous Calcium 10.5 Calcium Adj for Albumin 10.0 Total Bilirubin 0.7 AST 46 ALT 48 Alkaline Phosphatase 105 Creatine Kinase 666 H Troponin I 0.024 B-Natriuretic Peptide Total Protein 7.8 Albumin 4.2 Urine Color Urine Appearance Urine pH Ur Specific [place] Urine Protein Urine Glucose (UA) Urine Ketones Urine Blood Urine Nitrate Urine Bilirubin Urine Urobilinogen Ur Leukocyte Esterase Urine RBC Urine WBC Ur Epithelial Cells Urine Bacteria Urine Culture Comments Urine Opiates Screen Barbiturate Screen Ur Phencyclidine Scrn Urine Amphetamine U Benzodiazepines Scrn Urine Cocaine Screen Urine Marijuana (THC) SARS-CoV-2 (PCR) 09/20/20 09/20/20 09/20/20 07:45 07:45 09:25 WBC RBC Hgb Hct MCV MCH MCHC RDW Plt Count MPV Neutrophils % (Manual) Lymphocytes % (Manual) Monocytes % (Manual) Neutrophils # (Manual) Lymphocytes # (Manual) Monocytes # (Manual) Platelet Estimate RBC Morphology pCO2 pO2 HCO3 Total CO2 Base Excess ABG pH ABG O2 Sat (Measured) Sodium Plasma Sodium Potassium Chloride Carbon Dioxide Anion Gap BUN Creatinine Est GFR (Non-Af Amer) BUN/Creatinine Ratio Random Glucose Lactic Acid, Venous 1.7 Calcium Calcium Adj for Albumin Total Bilirubin AST ALT Alkaline Phosphatase Creatine Kinase Troponin I B-Natriuretic Peptide 481 H Total Protein Albumin Urine Color Urine Appearance Urine pH Ur Specific [place] Urine Protein Urine Glucose (UA) Urine Ketones Urine Blood Urine Nitrate Urine Bilirubin Urine Urobilinogen Ur Leukocyte Esterase Urine RBC Urine WBC Ur Epithelial Cells Urine Bacteria Urine Culture Comments Urine Opiates Screen Barbiturate Screen Ur Phencyclidine Scrn Urine Amphetamine U Benzodiazepines Scrn Urine Cocaine Screen Urine Marijuana (THC) SARS-CoV-2 (PCR) Not detected 09/20/20 09/20/20 09/20/20 09:31 13:25 14:50 WBC RBC Hgb Hct MCV MCH MCHC RDW Plt Count MPV Neutrophils % (Manual) Lymphocytes % (Manual) Monocytes % (Manual) Neutrophils # (Manual) Lymphocytes # (Manual) Monocytes # (Manual) Platelet Estimate RBC Morphology pCO2 65.0 H pO2 46.2 L HCO3 26.9 Total CO2 28.9 H Base Excess -1.9 ABG pH 7.24 L ABG O2 Sat (Measured) 73.3 L Sodium Plasma Sodium Potassium Chloride Carbon Dioxide Anion Gap BUN Creatinine Est GFR (Non-Af Amer) BUN/Creatinine Ratio Random Glucose Lactic Acid, Venous Calcium Calcium Adj for Albumin Total Bilirubin AST ALT Alkaline Phosphatase Creatine Kinase Troponin I B-Natriuretic Peptide Total Protein Albumin Urine Color Yellow Urine Appearance Slightly cloudy Urine pH 6.5 Ur Specific [place] 1.020 Urine Protein Negative Urine Glucose (UA) Negative Urine Ketones Negative Urine Blood 5 H Urine Nitrate Negative Urine Bilirubin Negative Urine Urobilinogen Normal Ur Leukocyte Esterase Negative Urine RBC 0-5 Urine WBC 0-5 Ur Epithelial Cells 0-5 Urine Bacteria None seen Urine Culture Comments No culture indicated Urine Opiates Screen Negative Barbiturate Screen Negative Ur Phencyclidine Scrn Negative Urine Amphetamine Negative U Benzodiazepines Scrn Negative Urine Cocaine Screen Negative Urine Marijuana (THC) Negative SARS-CoV-2 (PCR) 09/20/20 16:22 WBC RBC Hgb Hct MCV MCH MCHC RDW Plt Count MPV Neutrophils % (Manual) Lymphocytes % (Manual) Monocytes % (Manual) Neutrophils # (Manual) Lymphocytes # (Manual) Monocytes # (Manual) Platelet Estimate RBC Morphology pCO2 90.5 H* pO2 90.8 HCO3 33.9 H Total CO2 36.7 H Base Excess 2.9 ABG pH 7.19 L ABG O2 Sat (Measured) 94.4 Sodium Plasma Sodium Potassium Chloride Carbon Dioxide Anion Gap BUN Creatinine Est GFR (Non-Af Amer) BUN/Creatinine Ratio Random Glucose Lactic Acid, Venous Calcium Calcium Adj for Albumin Total Bilirubin AST ALT Alkaline Phosphatase Creatine Kinase Troponin I B-Natriuretic Peptide Total Protein Albumin Urine Color Urine Appearance Urine pH Ur Specific [place] Urine Protein Urine Glucose (UA) Urine Ketones Urine Blood Urine Nitrate Urine Bilirubin Urine Urobilinogen Ur Leukocyte Esterase Urine RBC Urine WBC Ur Epithelial Cells Urine Bacteria Urine Culture Comments Urine Opiates Screen Barbiturate Screen Ur Phencyclidine Scrn Urine Amphetamine U Benzodiazepines Scrn Urine Cocaine Screen Urine Marijuana (THC) SARS-CoV-2 (PCR) - Medications Medications: Active Medications Albuterol/Ipratropium (Duoneb 2.5-0.5mg/3ml Soln) 3 ml IH QID PRN PRN Reason: Shortness Of Breath Stop: 10/20/20 13:05 Last Admin: 09/20/20 15:18 Dose: 3 ml Documented by: Lactated Ringer's (Lactated Ringers) 1,000 mls @ 999 mls/hr IV .Q1H1M ONE Stop: 09/20/20 18:03 Last Admin: 09/20/20 17:04 Dose: 999 mls/hr Documented by: Norepinephrine Bitartrate 4 mg (/ Dextrose/Water) 500 mls @ 3.75 mls/hr IV TITR PRN; Protocol PRN Reason: Hypotension Stop: 10/20/20 17:26 Last Titration: 09/20/20 17:42 Dose: 1 mcg/min, 7.5 mls/hr Documented by: Propofol (Diprivan 1000 Mg/100 Ml Piggyback) 1,000 mg in 100 mls @ 1.758 mls/hr IV TITR PRN; Protocol PRN Reason: Sedation Stop: 10/20/20 17:26 Last Admin: 09/20/20 17:39 Dose: 5 mcg/kg/min, 1.758 mls/hr Documented by: Discontinued Medications Clonidine HCl (Catapres-Tts 2) 0.2 mg TD Q7D CONNOR Stop: 10/20/20 13:31 Last Admin: 09/20/20 14:05 Dose: 0.2 mg Documented by: Furosemide (Lasix) 40 mg IV ONCE ONE Stop: 09/20/20 13:07 Last Admin: 09/20/20 13:58 Dose: 40 mg Documented by: Haloperidol Lactate (Haldol) 10 mg IM ONCE ONE Stop: 09/20/20 13:42 Last Admin: 09/20/20 13:57 Dose: 10 mg Documented by: Hydromorphone HCl (Dilaudid) 0.5 mg IV ONCE ONE Stop: 09/20/20 10:01 Last Admin: 09/20/20 10:03 Dose: 0.5 mg Documented by: Lactated Ringer's (Lactated Ringers) 1,000 mls @ 999 mls/hr IV .Q1H1M ONE Stop: 09/20/20 16:31 Last Infusion: 09/20/20 16:55 Dose: Infused Documented by: Lorazepam (Ativan) 2 mg IV ONCE ONE Stop: 09/20/20 13:39 Last Admin: 09/20/20 13:45 Dose: 2 mg Documented by: - Disposition Disposition: Short Term Hospital Inpatient Condition: Serious Discharge Date: 09/20/20
[2020-09-20] MEDS ORDERED: LORAZEPAM IV PRN (19:18)
[2020-09-20] MEDS ORDERED: NORMAL SALINE IV PRN (19:18)
[2020-09-20 21:00] VITALS: BP 100/64
== END 2020-09-20 20:20 | disposition short-term general hospital (02) | DRG 535 ==
LOC: ER 07:08 → MS 10:57
PROVIDERS: ADMIT Family Medicine; ATTEND Family Medicine
DX: E77.8 Other disorders of glycoprotein metabolism; R68.81 Early satiety; J44.1 Chronic obstructive pulmonary disease with (acute) exacerbation; W01.0XXA Fall on same level from slipping, tripping and stumbling without subsequent striking against object, initial encounter; R60.1 Generalized edema; M54.5 Low back pain; J96.21 Acute and chronic respiratory failure with hypoxia; E87.2 Acidosis; J96.92 Respiratory failure, unspecified with hypercapnia; Z68.1 Body mass index [BMI] 19.9 or less, adult; E43 Unspecified severe protein-calorie malnutrition; I95.9 Hypotension, unspecified; S72.011A Unspecified intracapsular fracture of right femur, initial encounter for closed fracture; E86.1 Hypovolemia